=== PATIENT | male | born 1955 | race Hispanic/Latino ===

== ENCOUNTER 2019-10-05 09:01 | Outpatient (CLI) | payer OTHER ==
--- NOTE | 2019-10-05 12:20 | Magnetic Resonance Report ---
MR UE joint LT wo con INDICATION / CLINICAL INFORMATION: LEFT SHOULDER PAIN AND DECREASED ROM CONSISTENT W ROTATOR CUFF DI. Left shoulder pain following injur y TECHNIQUE: Multiplanar, multisequence MR images were obtained. Routine MRI of the left shoulder obtained without IV contrast COMPARISON: None available. FINDINGS: There is complete rupture of the distal supraspinatus tendon about 1 cm proximal to the distal footpr int attachment. There is minimal to mild supraspinatus muscle at 50. There is a low-grade partial art icular surface tear along the leading edge of the distal infra spinatus tendon measuring about 20-30% thickness. No supraspinatus muscle atrophy identified. The subscapularis tendon is intact. Review of the labrum demonstrates circumferential fraying of the glenoid labrum with extensive degene rative signal throughout much the labrum. The glenohumeral joint demonstrates minimal chondrosis. The re is moderate AC joint degenerative change with mild subacromial fluid IMPRESSION: 1. High-grade near complete tear identified involving the distal supraspinatus tendon about 1 cm prox imal to the distal footprint attachment, as above. Minimal to mild atrophy of the supraspinatus muscl e. 2. Low to intermediate grade partial articular surface tear of the leading edge of the distal infrasp inatus tendon measuring about 20% thickness. 3. Circumferential tear/fraying of the glenoid labrum with extensive underlying degenerative changes. 4. Moderate subacromial/subdeltoid fluid. Signer Name: Louis Hedrick MD Signed: 10/05/2019 12:15 PM Workstation Name: [id number]
== END 2019-10-05 09:02 | disposition home or self-care (01) ==
LOC: MRI 09:01
PROVIDERS: ATTEND Internal Medicine
DX: M75.122 Complete rotator cuff tear or rupture of left shoulder, not specified as traumatic (principal)